=== PATIENT | male | born 1995 | race Caucasian/White ===

== ENCOUNTER 2024-05-21 12:32 | Emergency (ER) | payer SELFPAY ==
[~2024-05-21] VITALS: Ht 167.6 cm; Wt 77.0 kg
[2024-05-21 12:35] VITALS: O2SAT 99
[2024-05-21 12:39] VITALS: TEMP 37.1; O2SAT 98
[2024-05-21] MEDS: TETANUS, DIPHTHERIA, PERTUSSIS VAC/PF 0.5ML (>10YR OLD) IM ONE (13:41)
[2024-05-21 13:52] VITALS: BP 126/83; PULSE 73; RESP 20
[2024-05-21] MEDS: HYDROCODONE/ACETAMINOPHEN 5/325MG TABLET PO ONE (13:52)
[2024-05-21] MEDS ORDERED: IBUP-2029 MT (14:38)
[2024-05-21] MEDS ORDERED: AMOX1TAB16 MT (14:52)
== END 2024-05-21 15:39 | disposition home or self-care (01) ==
LOC: ER 12:32
DX: S02.40FA Zygomatic fracture, left side, initial encounter for closed fracture (principal); S20.219A Contusion of unspecified front wall of thorax, initial encounter; S90.31XA Contusion of right foot, initial encounter; Z90.89 Acquired absence of other organs; Z79.899 Other long term (current) drug therapy; S09.90XA Unspecified injury of head, initial encounter; V89.2XXA Person injured in unspecified motor-vehicle accident, traffic, initial encounter; Y93.89 Activity, other specified; Y92.89 Other specified places as the place of occurrence of the external cause; Y99.8 Other external cause status
CPT/HCPCS: 29515; 70486; 71045; 73630; 90471; 90715; 99285

== ENCOUNTER 2024-05-23 20:00 | Inpatient (IN) | payer SELFPAY ==
[~2024-05-23] VITALS: Ht 167.6 cm; Wt 73.0 kg
[~2024-05-23 20:00] MED LIST: AMOX1TAB16 MT; IBUP-2029 MT
[2024-05-23 20:07] VITALS: O2SAT 99
[2024-05-23 21:00] LABS: BASOPHILS % 1.2 % (0.0-2.0); HEMATOCRIT. 47.7 % (42.0-52.0); HEMOGLOBIN. 16.4 g/dL (14.0-18.0); LYMPHOCYTES % 18.4 % (20.0-50.0); MEAN CORPUSCULAR HEMOGLOBIN 33.5 pg (28.0-32.0); MEAN CORPUSCULAR HGB CONC 34.4 g/dL (31.0-37.0); MEAN CORPUSCULAR VOLUME 97.3 fL (80.0-94.0); MEAN PLATELET VOLUME 8.5 fl (7.4-10.4); MONOCYTES % 4.1 % (2.0-8.0); NEUTROPHILS % 76.3 % (40.0-76.0); PLATELET 323 x1000/uL (130-400); RED CELL DISTRIBUTION WIDTH 13.1 % (11.6-14.6); WHITE BLOOD COUNT 10.2 x1000/uL (4.5-11.0)
[2024-05-23 21:10] LABS: CHLORIDE 99 mEq/L (98-107); SODIUM 138 mEq/L (136-145)
[2024-05-23 21:11] LABS: CALCIUM 10.3 mg/dL (8.7-10.4); CARBON DIOXIDE 26 mEq/L (21-32)
[2024-05-23 21:16] LABS: CREATININE 1.4 mg/dL (0.6-1.3); GLUCOSE 163 mg/dL (70-105); UREA NITROGEN BLOOD 8 mg/dL (9-23)
[2024-05-23 21:18] LABS: ALANINE AMINOTRANSFERASE 36 IU/L (10-49); ALBUMIN 4.8 g/dL (3.2-4.8); ASPARTATE AMINOTRANSFERASE 35 IU/L (<34); BILIRUBIN DIRECT 0.2 mg/dL (<=3.0)
[2024-05-23 21:19] LABS: BILIRUBIN TOTAL 0.5 mg/dL (0.1-1.0); PROTEIN TOTAL 8.5 g/dL (6.0-8.3)
[2024-05-23] MEDS: ONDANSETRON 4MG ODT PO STA (21:20)
[2024-05-23] MEDS: ACETAMINOPHEN 325MG TABLET PO STA (21:20)
[2024-05-23] MEDS: DICYCLOMINE 10 MG/5 ML ORAL SYR PO STA (21:22)
[2024-05-23] MEDS: MAGNESIUM/ALUMINUM HYDROXIDE/SIMETHICONE 30ML UDC PO STA (21:22)
[2024-05-23 22:39] LABS: ACETAMINOPHEN < 2 ug/mL (10-30)
[2024-05-23 22:41] LABS: BETA HYDROXYBUTYRATE 1.2 mMol/L (0.0-0.3)
[2024-05-23 23:34] LABS: BG DEOXYHEMOGLOBIN 34.6 % (0.0-5.0)
[2024-05-24] MEDS: FOLIC ACID 1 MG, THIAMINE HCL 100 MG, MVI, ADULT NO.1 10 ML in DEXTROSE 5% WATER 1,000 ML IV ONE (00:52)
[2024-05-24 02:00] VITALS: BP 147/81; PULSE 109; RESP 18; TEMP 36.2
[2024-05-24 02:16] VITALS: BP 147/81; PULSE 109; RESP 18; TEMP 36.2; O2SAT 98
[2024-05-24 04:00] VITALS: BP 110/57; PULSE 83; RESP 19; TEMP 36; O2SAT 98
[2024-05-24] MEDS ORDERED: HYDROCODONE/ACETAMINOPHEN 5/325MG TABLET PO PRN (07:30)
[2024-05-24] MEDS ORDERED: LORAZEPAM 2MG/ML INJ IV PRN (07:30)
[2024-05-24] MEDS ORDERED: ONDANSETRON HCL 4MG TABLET PO PRN (07:30)
[2024-05-24 08:00] VITALS: BP 124/85; PULSE 104; RESP 17; RESP 18; TEMP 36.5; TEMP 36.6; O2SAT 100
[2024-05-24] MEDS ORDERED: NALOXONE HCL 0.4MG/ML VIAL IV PRN (08:00)
[2024-05-24] MEDS: CHLORDIAZEPOXIDE 25MG CAPSULE PO SCH (08:49)
[2024-05-24] MEDS: PANTOPRAZOLE 40MG DR TABLET PO SCH (08:49)
[2024-05-24 12:00] VITALS: BP 130/84; PULSE 78; RESP 18; TEMP 36.4; O2SAT 99
[2024-05-24 12:09] LABS: CHLORIDE 98 mEq/L (98-107); POTASSIUM 3.6 mEq/L (3.5-5.1); SODIUM 137 mEq/L (136-145)
[2024-05-24 12:10] LABS: CARBON DIOXIDE 29 mEq/L (21-32)
[2024-05-24 12:11] LABS: CALCIUM 9.9 mg/dL (8.7-10.4)
[2024-05-24 12:12] LABS: BASOPHILS % 0.7 % (0.0-2.0); EOSINOPHILS % 0.3 % (0.0-5.0); HEMATOCRIT. 44.7 % (42.0-52.0); HEMOGLOBIN. 14.8 g/dL (14.0-18.0); LYMPHOCYTES % 25.8 % (20.0-50.0); MEAN CORPUSCULAR HEMOGLOBIN 31.6 pg (28.0-32.0); MEAN CORPUSCULAR VOLUME 95.6 fL (80.0-94.0); MEAN PLATELET VOLUME 8.9 fl (7.4-10.4); MONOCYTES % 6.9 % (2.0-8.0); NEUTROPHILS % 66.3 % (40.0-76.0); PLATELET 291 x1000/uL (130-400); RED BLOOD CELL COUNT 4.67 mill/uL (4.7-6.1); RED CELL DISTRIBUTION WIDTH 13.1 % (11.6-14.6)
[2024-05-24 12:15] LABS: CREATININE 1.3 mg/dL (0.6-1.3); GLUCOSE 95 mg/dL (70-105)
[2024-05-24 12:16] LABS: UREA NITROGEN BLOOD 8 mg/dL (9-23)
[2024-05-24 12:17] LABS: ALANINE AMINOTRANSFERASE 29 IU/L (10-49); ALBUMIN 4.4 g/dL (3.2-4.8); ASPARTATE AMINOTRANSFERASE 29 IU/L (<34)
[2024-05-24 12:18] LABS: BILIRUBIN TOTAL 0.5 mg/dL (0.1-1.0); PROTEIN TOTAL 7.8 g/dL (6.0-8.3)
[2024-05-24 13:01] LABS: CLARITY URINE CLOUDY (CLEAR); COLOR URINE DARK YELLOW (YELLOW); GLUCOSE URINE NEGATIVE (NEGATIVE); KETONES URINE 1+ (NEGATIVE); LEUKOCYTE ESTERASE URINE NEGATIVE (NEGATIVE); NITRITE URINE NEGATIVE (NEGATIVE); OCCULT BLOOD URINE NEGATIVE (NEGATIVE); PH URINE 6.5 (4.5-8.0); PROTEIN URINE 1+ (NEGATIVE); SPECIFIC GRAVITY URINE 1.025 (1.005-1.030)
[2024-05-24 13:17] LABS: BACTERIA URINE FEW; MUCUS URINE 1+ /lpf (NONE/TRACE); RBC URINE 0-2 /hpf (0-2); SQUAMOUS EPITHELIAL CELL URINE NONE SEEN /lpf (RARE/1+); YEAST URINE NONE SEEN
[2024-05-25] MEDS ORDERED: FOLIC ACID 1MG TABLET PO SCH (09:00)
[2024-05-25] MEDS ORDERED: THIAMINE HCL 100MG TABLET PO SCH (09:00)
== END 2024-05-24 17:10 | disposition left against medical advice (07) | DRG 816 ==
LOC: ER 20:22 → 6WST 05-24 00:14 → EDBEDREQTM 05-24 00:39 → EDBEDREQ 05-24 00:39
PROVIDERS: ADMIT Internal Medicine; ATTEND Internal Medicine
DX: T51.2X1A Toxic effect of 2-Propanol, accidental (unintentional), initial encounter (principal); F10.10 Alcohol abuse, uncomplicated; Z53.29 Procedure and treatment not carried out because of patient's decision for other reasons; Y90.9 Presence of alcohol in blood, level not specified; Y92.89 Other specified places as the place of occurrence of the external cause
CPT/HCPCS: 36415; 80048; 80053; 80076; 80307; 80320; 80329; 81003; 82010; 82375; 82803; 83930; 85025; 99291; J3411; J3490; J7070; Q0162; G0480